=== PATIENT | female | born 1985 | race Caucasian/White ===

== ENCOUNTER 2016-08-13 09:45 | Emergency (ER) | payer MEDICAID ==
[~2016-08-13 09:45] MED LIST: ADVIL200 M1 PO; ANTI-DIARRHEAL2 MG PO; BENTYL20 MG PO; CELEBREX200 MG PO; CIPRO500 M1 PO; DAY TIME COLD-237 M1 PO; DOXYCYCLINE; DOXYCYCLINE HY100 MG PO; FLAGYL500 MG PO; FLEXERIL10 MG PO; FLUDROCORTISON0.1 M1 PO; HYCODAN SYRUP480 ML PO; IBUPROFEN600 MG PO; IBUPROFEN800 MG PO; KEFLEX500 MG PO; MOBIC7.5 M2 PO; NAPROSYN500 M1 PO; NAPROSYN500 MG PO; NO HOME MEDS; NORCO 5/325 TAB1 TAB PO; NYQUIL D COLD295 M1 PO; PERCOCET 5/3251 TAB PO; PHENERGAN W/CO120 ML PO; PRENATAL1 EACH PO; ROXICODONE15 M2 PO; VALTREX1000 MG PO; ZANAFLEX4 M2 PO; ZITHROMAX250MG Z-PAK PO; ZOFRAN ODT4 MG/UDTAB PO; ZOFRAN4 MG PO
== END 2016-08-13 12:36 ==
LOC: EDMED 09:45
DX: R51 Headache (principal); R11.0 Nausea; Z86.718 Personal history of other venous thrombosis and embolism; Z90.710 Acquired absence of both cervix and uterus; Z90.49 Acquired absence of other specified parts of digestive tract
CPT/HCPCS: J1170; J1200; J1885; J2405; J7030

== ENCOUNTER 2016-10-09 16:42 | Emergency (ER) | payer MEDICAID ==
[2016-10-09] MEDS ORDERED: ZOLOFT25 M1 PO (19:10)
[2016-10-09] MEDS ORDERED: LYRICA150 MG/CAP PO (19:11)
[2016-10-09] MEDS ORDERED: MOBIC7.5 M2 PO (19:11)
[2016-10-09] MEDS ORDERED: OXYCONTIN20 M2 PO (19:12)
== END 2016-10-09 20:36 ==
LOC: EDMED 16:42
DX: R51 Headache (principal); Z90.49 Acquired absence of other specified parts of digestive tract; Z90.710 Acquired absence of both cervix and uterus
CPT/HCPCS: J0780; J1200; J2060; J7030